=== PATIENT | male | born 1955 | race Caucasian/White ===

== ENCOUNTER → 2024-07-31 06:51 | Outpatient (REF) | payer MEDICARE, SELFPAY | LOC: RAD 06:51 | PROVIDERS: ATTENDING PHYSICIAN Podiatrist Foot Surgery; FAMILY PHYSICIAN Family Medicine | DX: L97.509 Non-pressure chronic ulcer of other part of unspecified foot with unspecified severity (principal); M20.42 Other hammer toe(s) (acquired), left foot | CPT/HCPCS: 93922; 93925 ==

== ENCOUNTER → 2024-08-20 13:10 | Outpatient (REF) | payer MEDICARE, SELFPAY | LOC: HWCARD 13:10 | PROVIDERS: ATTENDING PHYSICIAN Podiatrist Foot Surgery; FAMILY PHYSICIAN Family Medicine | DX: Z01.818 Encounter for other preprocedural examination (principal) | CPT/HCPCS: 93005 ==